=== PATIENT | female | born 1980 | race Caucasian/White ===

== ENCOUNTER 2018-03-11 22:51 | Emergency (ER) | payer MEDICAID, SELFPAY ==
[2018-03-11 22:56] VITALS: BP 129/95; PULSE 74; RESP 15; TEMP 36.6; O2SAT 96
--- NOTE | 2018-03-11 23:09 | W.ED.GENAD ---
Discharge Plan Disposition Patient Disposition: HOME Condition: Good Discharge Details Chief Complaint: RashLesion Clinical Impression: Natalie infection Primary Care Provider: Brad Chavez ED Provider: Jn Perez [place] Meds and New Rx's Prescriptions: New nystatin 100,000 unit/gram cream 1 applic TP BID Qty: 15 RF: 0 Discharge Instructions Instructions: Skin Yeast Infection (ED) Additional Instructions: Follow up with PCP or [facility] if rash does not clear up using the cream. Return to ED for fever, worsening pain/redness. Referrals: [facility] [place] [Provider Group] Medical Decision Making MDM Narrative Medical decision making narrative: Patient with what appears to be candidal rash underneath her left breast. Fingerstick glucose is fine, in the 90s. We will start her on nystatin cream. [facility] if not better in the next week or so. Return if worse. HPI - General Adult General Mode of arrival: ambulatory. Date/Time Provider Initiated Documentation: 03/11/18 23:03. Limitations to Documentation: no limitations. Information obtained by: patient. HPI Narrative: Patient here with rash under her breasts. She has had this intermittently for a couple of months. Currently has rash under her left breast not so much the right. It is pruritic in nature. She states that it smells bad and drains at times. She has had it previously in the groin but not now. She denies any medical problems. She denies fevers or chills. She denies rash elsewhere. Related Data Previous Rx's Medication Instructions Recorded nystatin 1 applic TP BID #15 gm 03/11/18 Allergies Allergy/AdvReac Type Severity Reaction Status Date / Time No Known Allergies Allergy Unverified 03/11/18 23:01 General Stated Complaint: RashLesion ERMIAS: 5 Review of Systems Constitutional Denies fever(s) Integumentary/Breasts Denies breast pain, Reports pruritus, Reports rash and Denies sores [facility] Family History Mother Diabetes Father Diabetes Grandmother Breast cancer Maternal Aunt Breast cancer Social History Smoking/Tobacco Use Status: Former Tobacco Use Surgical History Cervical Procedure (11/09/11) Cholecystectomy (~1993) Exam Const General: cooperative, comfortable and no acute distress Orientation: alert and oriented x3 HENMT Head: normocephalic and atraumatic Skin Rashes: rashes noted (Maculopapular, erythematous rash underneath the left breast with satellite lesions consistent with yeast. Rash visualized with female nurse present.) Course Vital Signs Temperature 97.9 F 03/11/18 22:56 Pulse 74 03/11/18 22:56 Respiratory Rate 15 03/11/18 22:56 Blood Pressure 129/95 H 03/11/18 22:56 Pulse Oximetry 96 03/11/18 22:56 Temperature 97.9 F 03/11/18 22:56 Pulse 74 03/11/18 22:56 Respiratory Rate 15 03/11/18 22:56 Blood Pressure 129/95 H 03/11/18 22:56 Pulse Oximetry 96 03/11/18 22:56
--- NOTE | 2018-03-11 23:20 | ED.GENADUL_ITS ---
Discharge Plan Disposition Patient Disposition: HOME Condition: Good Discharge Details Chief Complaint: RashLesion Clinical Impression: Natalie infection Primary Care Provider: Brad Chavez ED Provider: Jn Perez [place] Meds and New Rx's Prescriptions: New nystatin 100,000 unit/gram cream 1 applic TP BID Qty: 15 RF: 0 Discharge Instructions Instructions: Skin Yeast Infection (ED) Additional Instructions: Follow up with PCP or [facility] if rash does not clear up using the cream. Return to ED for fever, worsening pain/redness. [place] [facility] [place] Medical Decision Making MDM Narrative Medical decision making narrative: Patient with what appears to be candidal rash underneath her left breast. Fingerstick glucose is fine, in the 90s. We will start her on nystatin cream. [facility] if not better in the next week or so. Return if worse. HPI - General Adult General Mode of arrival: ambulatory . Date/Time Provider Initiated Documentation: 03/11/18 23:03 . Limitations to Documentation: no limitations . Information obtained by: patient . HPI Narrative: Patient here with rash under her breasts. She has had this intermittently for a couple of months. Currently has rash under her left breast not so much the right. It is pruritic in nature. She states that it smells bad and drains at times. She has had it previously in the groin but not now. She denies any medical problems. She denies fevers or chills. She denies rash elsewhere. Related Data Previous Rx's Medication Instructions Recorded nystatin 1 applic TP BID #15 gm 03/11/18 Allergies Allergy/AdvReac Type Severity Reaction Status Date / Time No Known Allergies Allergy Unverified 03/11/18 23:01 General Stated Complaint: RashLesion ERMIAS: 5 Review of Systems Constitutional Denies fever(s) Integumentary/Breasts Denies breast pain, Reports pruritus, Reports rash and Denies sores [facility] Family History Mother Diabetes Father Diabetes Grandmother Breast cancer Maternal Aunt Breast cancer Social History Smoking/Tobacco Use Status: Former Tobacco Use Surgical History Cervical Procedure (11/09/11) Cholecystectomy (~1993) Exam Const General: cooperative, comfortable and no acute distress Orientation: alert and oriented x3 HENMT Head: normocephalic and atraumatic Skin Rashes: rashes noted (Maculopapular, erythematous rash underneath the left breast with satellite lesions consistent with yeast. Rash visualized with female nurse present.) Course Vital Signs Temperature 97.9 F 03/11/18 22:56 Pulse 74 03/11/18 22:56 Respiratory Rate 15 03/11/18 22:56 Blood Pressure 129/95 H 03/11/18 22:56 Pulse Oximetry 96 03/11/18 22:56 Temperature 97.9 F 03/11/18 22:56 Pulse 74 03/11/18 22:56 Respiratory Rate 15 03/11/18 22:56 Blood Pressure 129/95 H 03/11/18 22:56 Pulse Oximetry 96 03/11/18 22:56
[2018-03-11 23:32] VITALS: BP 129/95; PULSE 74; RESP 15; TEMP 36.6; O2SAT 96
== END 2018-03-11 23:29 | disposition home or self-care (01) ==
PROVIDERS: Emergency Provider Emergency Medicine; PCP Internal Medicine
DX: B37.2 Candidiasis of skin and nail (principal)
CPT/HCPCS: 36416; 82962; 99283

== ENCOUNTER 2018-03-15 12:46 | Emergency (ER) | payer MEDICAID, SELFPAY ==
[2018-03-15 12:51] VITALS: BP 188/90; PULSE 79; RESP 16; TEMP 36.9; O2SAT 96
--- NOTE | 2018-03-15 13:19 | ED.GENADUL_ITS ---
Discharge Plan Disposition Patient Disposition: HOME Condition: Fair Discharge Details Chief Complaint: Orthopedic Clinical Impression: Pain of right scapula Primary Care Provider: Brad Chavez ED Provider: Kamila Blevins Home Meds and New Rx's Prescriptions: New ibuprofen 600 mg tablet 600 mg PO QID PRN (Reason: pain) Qty: 20 RF: 0 Continue nystatin 100,000 unit/gram cream 1 applic TP BID Qty: 15 RF: 0 Discharge Instructions Instructions: Musculoskeletal Pain (ED) Additional Instructions: Encourage hydration. Tylenol and/or ibuprofen as needed for discomfort. May take 2000 mg of Tylenol every 6 hours, 600 mg of ibuprofen every 6 hours as needed for pain. Encourage gentle stretching and range of motion. He may try topical patches Salonpas or Lidoderm patches. If you develop fevers/chills, difficulty breathing, or other new/worsening symptoms please seek care urgently once again. Otherwise please follow up with primary care in 1-2 weeks if pain persists. Referrals: Brad Chavez MD [Primary Care Provider] - ([phone]) Discharge Data Discharge Date/Time-TO BE ENTERED AT DEPARTURE: 03/15/18 13:37 Medical Decision Making [facility] Narrative Medical decision making narrative: Patient presents today with cc of right scapular pain that began again after fall a few days ago. No signs of trauma. Pain with palpation under the medial border of the scapula. Concern for subscapular bursitis vs. muscular pain. Discussed these diagnoesse and pathology with the patient. Endcouraged gentle range of motion. Will treat with tylenol, ibuprofen and lidoderm patch. Advised stretching techniques. Advised f /u with PCP in 1-2 weeks if symptoms persist. We discussed new/worsening symptoms and when to seek care urgently once again. She voices understanding and is in agreement with this plan. HPI - General Adult General Mode of arrival: ambulatory . Date/Time Provider Initiated Documentation: 03/15/18 13:04 . Limitations to Documentation: no limitations . Information obtained by: patient . HPI Narrative: Patient is a 37-year-old female presenting today with chief complaint of right medial scapular pain. She reports that she fell she slipped on a wet floor 3 days ago. States she did land on her outstretched right arm. Did not have any pain initially. However, pain began today upon awakening. States she was here a few months ago for similar pain. I did review the notes and patient indicates that this is the same area and type of pain that she was seen for previously. When she was seen 4 months ago for this she was given IM Toradol which she states is not successful in alleviating her discomfort. She has not tried anything as of yet for pain. She denies any altered sensation in her hand. States the pain is worse with movement of the shoulder. Denies any shortness of breath, difficulty breathing or chest pain. Patient has IUD Related Data Previous Rx's Medication Instructions Recorded nystatin 1 applic TP BID #15 gm 03/11/18 ibuprofen 600 mg PO QID PRN #20 tab 03/15/18 Allergies Allergy/AdvReac Type Severity Reaction Status Date / Time No Known Allergies Allergy Unverified 03/15/18 12:55 General Stated Complaint: Orthopedic ERMIAS: 4 Review of Systems Constitutional Reports as per HPI, Denies chills, Denies fever(s), Denies headache(s) and Denies malaise ENT Denies headache(s) Cardiovascular Denies chest pain, Denies chest pain at rest, Denies chest pain with activity, Denies dyspnea and Denies dyspnea on exertion Respiratory Denies cough, Denies dyspnea, Denies dyspnea on exertion and Denies wheezing Gastrointestinal Denies nausea and Denies vomiting Musculoskeletal Reports as per HPI Integumentary/Breasts Denies erythema, Denies rash, Denies skin pain and Denies wounds Neurologic Denies headache(s) Allergic/Immunologic Denies wheezing PFSH Family History Mother Diabetes Father Diabetes Grandmother Breast cancer Maternal Aunt Breast cancer Social History Smoking/Tobacco Use Status: Former Tobacco Use Surgical History Cervical Procedure (11/09/11) Cholecystectomy (~1993) Exam Const General: cooperative, healthy appearing, comfortable, no acute distress, well developed and well groomed Nutritional Appearance: overweight Orientation: alert and awake Neck Neck: normal visual inspection, full ROM, no meningeal signs, trachea midline and nontender Chest Chest: normal inspection of the chest, no localized rib tenderness and no tenderness Resp Effort & Inspection: normal respiratory effort, able to speak in complete sentences and no respiratory distress Auscultation: clear to auscultation bilaterally, lung sounds not diminished, no rales, no rhonchi and no wheezes Cardio Rate: regular rate Rhythm: regular rhythm Heart Sounds: S1 normal and S2 normal Back/Spine/Pelvis Back: no CVA tenderness Cervical Spine: normal cervical lordosis, cervical ROM normal and No cervical spinal tenderness Thoracic/Lumbar Spine: thoracic and lumbar spine normal to inspection Other: Patient has pain with palpation along the medial border of the right scapula. Pain is maximal with pressure under the scapular border. No erythema , warmth, swelling noted. No pain over the scapula, no pain medial to this border. 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 Forward elevation does increase discomfort along medial border of the scapula. ), full ROM and normal capillary refill Psych Appearance: grossly normal and well kempt Mental Status: mental status grossly normal Speech and Movement: speech and movement normal Course Vital Signs Temperature 36.9 C 03/15/18 12:51 Pulse 79 03/15/18 12:51 Respiratory Rate 16 03/15/18 12:51 Blood Pressure 188/90 H 03/15/18 12:51 Pulse Oximetry 96 03/15/18 12:51 Temperature 36.9 C 03/15/18 12:51 Pulse 79 03/15/18 12:51 Respiratory Rate 16 03/15/18 12:51 Blood Pressure 188/90 H 03/15/18 12:51 Pulse Oximetry 96 03/15/18 12:51
[2018-03-15] MEDS: Acetaminophen 500 MG TAB 1000 MG PO (13:26)
[2018-03-15] MEDS: Lidocaine 5% Patch 1 PATCH TP (13:27)
[2018-03-15] MEDS: Ibuprofen 600 MG TAB PO ×2 (13:27)
== END 2018-03-15 13:37 | disposition home or self-care (01) ==
PROVIDERS: Emergency Provider Physician Assistant; PCP Internal Medicine
DX: M25.511 Pain in right shoulder (principal)
CPT/HCPCS: 99283

== ENCOUNTER 2018-07-25 14:02 | Outpatient (REF) | payer MEDICAID, SELFPAY ==
[2018-07-25 15:48] LABS: HCT 41.8 % (36.0-46.0); HGB 13.8 g/dL (12.0-15.5); Mean Corpuscular Hemoglobin 29.9 pg (27.0-33.0); Mean Corpuscular Volume 90.7 fL (80-95); Platelet Count 255 x1000/uL (130-400); RBC 4.61 m/cumm (4.00-5.20); RBC Distribution Width 12.9 % (11.7-14.6); White Blood Cell Count 7.69 k/cumm (4.4-10.8)
[2018-07-25 16:50] LABS: Anion Gap 10.2 mmol/L (3-11); BUN 12 mg/dL (7-18); CO2 26.8 mmol/L (21.0-32.0); CREATININE 0.77 mg/dL (0.55-1.02); Calcium 8.9 mg/dL (8.5-10.1); Chloride 106 mmol/L (98-107); Glucose 87 mg/dL (70-100); Magnesium 1.7 mg/dL (1.8-2.4); NT-proBNP 73 pg/mL; Potassium 4.1 mmol/L (3.5-5.1); Sodium 143 mmol/L (136-145); TSH (W/Ref FT4) 2.41 uIU/mL (0.358-3.74)
== END 2018-07-25 14:22 ==
LOC: NCHCN 14:02
PROVIDERS: PCP Internal Medicine; Visit Provider Internal Medicine
DX: R07.89 Other chest pain (principal); R00.2 Palpitations
CPT/HCPCS: 80048; 85027; 83735; 83880; 84443

== ENCOUNTER 2018-08-03 07:57 | Outpatient (CLI) | payer MEDICAID, SELFPAY | END 2018-08-03 08:17 | PROVIDERS: PCP Internal Medicine; Visit Provider Internal Medicine | DX: R00.2 Palpitations (principal); I49.3 Ventricular premature depolarization; I49.1 Atrial premature depolarization | CPT/HCPCS: 93225 ==

== ENCOUNTER 2018-08-07 13:10 | Outpatient (CLI) | payer MEDICAID, SELFPAY ==
--- NOTE | 2018-08-07 15:47 | HOLTER_ITS ---
Date of dictation: August 07, 2018 Study Indication: Palpitations. Requesting Provider: Brad Chavez M.D. Findings: The patient was monitored for 2 days. The baseline rhythm was sinus rhythm. Average heart rate 85 bpm, range 65-155 bpm. There was rare ectopy, 6 PVCs, and 3 PACs. There was no ventricular tachycardia or supraventricular tachycardia. There were no pauses greater than 3 seconds. There was no high-degree heart block. There were 2 patient events; none of these events correlated with arrhythmias. Final Interpretation: Normal study.
== END 2018-08-07 13:30 ==
PROVIDERS: PCP Internal Medicine; Visit Provider Internal Medicine
DX: R00.2 Palpitations (principal); I49.3 Ventricular premature depolarization; I49.1 Atrial premature depolarization
CPT/HCPCS: 93226

== ENCOUNTER 2018-12-16 23:21 | Emergency (ER) | payer MEDICAID, SELFPAY ==
[2018-12-16 23:24] VITALS: BP 141/92; PULSE 90; RESP 18; TEMP 36.7; O2SAT 100
--- NOTE | 2018-12-16 23:27 | ED.GENADUL_ITS ---
Discharge Plan Disposition Patient Disposition: HOME Condition: Good Discharge Details Chief Complaint: EyeProblem Clinical Impression: Sensation of foreign body in eye Primary Care Provider: Brad Chavez ED Provider: Jn Perez Home Meds and New Rx's Prescriptions: Continued montelukast [Singulair] 10 mg Tablet 10 mg PO QPM RF: 0 fluticasone propionate [Flonase Allergy Relief] 50 mcg/actuation Dixon,Suspension 2 spray INTRANASAL DAILY RF: 0 Zyrtec 10 mg Capsule 10 mg PO DAILY PRNRF: 0 Discharge Instructions Additional Instructions: There was no obvious foreign body in the eye. There is no corneal abrasion. May try [id number] eyedrops like Visine to see if it helps. Do not use more than a day. If your eye is still bothering you follow-up with your eye doctor Tuesday or Tuesday. If you have increasing pain, decreasing vision, puslike drainage from the eye return to ED. Discharge Data Discharge Date/Time-TO BE ENTERED AT DEPARTURE: 12/16/18 23:49 Medical Decision Making Patient presenting with foreign body sensation to the left eye. Tetracaine was used to anesthetize the eye with complete relief of symptoms. There is no obvious foreign body seen. Upper lid was everted and swiped with mucous material but no obvious foreign body removed. Fluorescein staining done. No uptake under Wang lamp. Slit lamp exam performed with no evidence of foreign body seen. Cornea is clear. Anterior chamber is clear. Patient reports that sensation was up under the upper eyelid so hopefully the eversion of the lid and swiping away material removes any potential foreign body. She may try over-the- counter eyedrops like Visine for the next day. Follow-up with her eye doctor early next week if continued symptoms. Return to ED for change in vision, eye pain, eye swelling, drainage, erythema. HPI General Mode of arrival: ambulatory . Date/Time Provider Initiated Documentation: 12/16/18 23:24 . Limitations to Documentation: no limitations . Information obtained by: patient, RN notes reviewed and old records reviewed . HPI Narrative: Patient presents to ED with about 2-1/2 hours of foreign body sensation to the left eye. She does not recall anything specifically going into her eye. However she has been tearing and rubbing at it for 2 hours. The sensation periodically goes away and comes back. She has no change in vision. She has no purulent discharge. She does not wear contacts. Related Data Home Medications Medication Instructions Recorded Confirmed Zyrtec 10 mg PO DAILY PRN 12/16/18 12/16/18 fluticasone propionate [Flonase 2 spray INTRANASAL DAILY 12/16/18 12/16/18 Allergy Relief] montelukast [Singulair] 10 mg PO QPM 12/16/18 12/16/18 Allergies Allergy/AdvReac Type Severity Reaction Status Date / Time No Known Allergies Allergy Unverified 12/16/18 23:29 General ERMIAS: 4 Review of Systems Constitutional Denies fever(s) and Denies headache(s) Eyes Denies change in vision, Reports eye discharge (clear tearing), Reports irritation, Reports itchy eyes, Denies loss of vision and Denies eye pain Comments: foreign body sensation ENT Denies headache(s) Gastrointestinal Denies nausea and Denies vomiting Neurologic Denies headache(s) and Denies loss of vision Allergic/Immunologic Reports itchy eyes PFS Surgical History Cervical Procedure (11/09/11) Cholecystectomy (~1993) Family History Mother Diabetes Father Diabetes Grandmother Breast cancer Maternal Aunt Breast cancer Social History Smoking/Tobacco Use Status: Former Tobacco Use Alcohol Intake: never Drug use: Never Do you feel safe at home: Yes Do you feel safe in your relationship?: Yes Exam Const General: cooperative and no acute distress Orientation: alert and oriented x3 HENMT Head: normocephalic and atraumatic Face and sinus: normal facial exam Eyes Periorbital: periorbital findings normal Eyelids: eyelid abnormality left upper eyelid swelling; without erythema and nontender Conjunctivae: conjunctival abnormality left conjunctival injection Sclera: sclerae normal Cornea: corneas normal and fluorescein used Pupils: PERRL EOM: EOM intact bilaterally Other: VA is 20/25 in left and 20/20 right.
[2018-12-16] MEDS: Fluorescein STRIPS 100/BOX 1 MG (23:37)
[2018-12-16] MEDS: Tetracaine 0.5% 4 ML BTL (23:37)
== END 2018-12-16 23:49 | disposition home or self-care (01) ==
PROVIDERS: Emergency Provider Emergency Medicine; PCP Internal Medicine
DX: T15.92XA Foreign body on external eye, part unspecified, left eye, initial encounter (principal)
CPT/HCPCS: 99283

== ENCOUNTER 2019-02-23 10:19 | Outpatient (REF) | payer MEDICAID, SELFPAY ==
[2019-02-26 13:58] LABS: Chlamydia Result Negative; GC Result Negative; Specimen Description CERVIX
== END 2019-02-23 10:39 ==
LOC: LBN 10:19
PROVIDERS: PCP Internal Medicine; Visit Provider Nurse Practitioner Women's Health
DX: Z11.3 Encounter for screening for infections with a predominantly sexual mode of transmission (principal)
CPT/HCPCS: 87491; 87591

== ENCOUNTER 2019-02-28 00:33 | Outpatient (CLI) | payer MEDICAID, SELFPAY ==
--- NOTE | 2019-02-28 08:39 | DI.COMBO_ITS ---
SYMPTOMS/DIAGNOSIS: SHARP RT BREAST PAIN, FIBROCYSTIC TISSUE, N64.4, MASTODYNIA, N63.10, PAINFUL LUMPY RT BREAST MAMMOGRAM AND RIGHT BREAST ULTRASOUND: Mammograms were interpreted according to the usual protocol including computer analysis with CAD system, tomosynthesis and C view imaging. The patient notes tenderness in the lower inner quadrant of the right breast. This is a baseline examination. The breasts are composed of scattered fibroglandular densities, breast density Category B. No masses or suspicious calcifications are seen. No abnormality is seen in the area of patient tenderness. Right breast ultrasound shows no evidence of a cyst or mass. IMPRESSION: Category I, negative mammogram. Annual screening is recommended at age 40 or sooner if clinically indicated. [facility] ASSESSMENT OF FINDINGS: Negative. Category 1. Patient will receive a letter notifying them of these results. BI-RADS category B. There are scattered areas of fibroglandular density.
== END 2019-02-28 00:53 ==
PROVIDERS: PCP Internal Medicine; Visit Provider Nurse Practitioner Women's Health
DX: N63.14 Unspecified lump in the right breast, lower inner quadrant (principal); N64.4 Mastodynia
CPT/HCPCS: 76642; 77062; 77066; G0279

== ENCOUNTER 2019-07-11 06:53 | Outpatient (CLI) | payer MEDICAID, SELFPAY ==
--- NOTE | 2019-07-11 07:58 | DI.US_ITS ---
EXAM: US PELVIS TRANSVAGINAL CLINICAL HISTORY: PELVIC PAIN LT, R10.2. TECHNIQUE: Ultrasound of the pelvic, both abdominal and transvaginal was performed using standard pr otocol. COMPARISON: No previous for comparison. FINDINGS: KIDNEYS: Kidneys are symmetric in size. No evidence of renal calculi. No evidence of hydronephrosis. No renal mass or cyst identified. UTERUS: Position: Anteverted. Size: 9.1 x 5.1 x 5.6 cm Endometrium: 0.3 cm. Normal for patient's menstrual status. There is an IUD in good position. Myometrium: Unremarkable. Cervix: Unremarkable. OVARIES: Right: 2.3 x 1.2 x 2.2 cm Cyst or mass: None. Left: 2.4 x 1.8 x 2.9 cm Cyst or mass: There is a 1.8 x 1.4 x 2.1 centimeter dominant follicle. DOPPLER: Color: Symmetric and uniform flow to both ovaries. No hyperemia. Duplex: Normal ovarian arterial waveforms visualized. CUL-DE-SAC: Free fluid: None. IMPRESSION: 1. Normal sonographic appearance of the kidneys. 2. Normal-appearing uterus with endometrial stripe within normal limits. IUD in good position. 3. Unremarkable bilateral ovaries.
== END 2019-07-11 07:13 ==
PROVIDERS: PCP Internal Medicine; Visit Provider Specialist/Technologist Athletic Trainer
DX: R10.2 Pelvic and perineal pain (principal); Z97.5 Presence of (intrauterine) contraceptive device
CPT/HCPCS: 76830; 76856

== ENCOUNTER 2019-09-14 16:07 | Emergency (ER) | payer MEDICAID, SELFPAY ==
[2019-09-14 16:08] VITALS: BP 158/91; PULSE 86; RESP 16; TEMP 37.1; O2SAT 97
--- NOTE | 2019-09-14 16:24 | ED.GENADUL_ITS ---
Discharge Plan Disposition Patient Disposition: HOME Discharge Details Chief Complaint: Orthopedic Clinical Impression: AC (acromioclavicular) joint arthritis Primary Care Provider: Brad Chavez ED Provider: Abran Chen Home Meds and New Rx's Prescriptions: Continued Zyrtec 10 mg Capsule 10 mg PO DAILY PRNRF: 0 montelukast [Singulair] 10 mg tablet 10 mg PO QPM PRNRF: 0 fluticasone propionate [Flonase Allergy Relief] 50 mcg/actuation spray,suspension 2 spray INTRANASAL DAILY PRNRF: 0 Discharge Instructions Instructions: Arthritis (ED) Additional Instructions: Please take ibuprofen over the counter. Take 600mg by mouth every 6 hours as needed for pain. Use sling for comfort over the next couple weeks. Limit activities that worsen pain. Please contact your primary care physician to arrange follow-up. Return to the ER for any worsening or new concerning symptoms. Referrals: Brad Chavez MD [Primary Care Provider] - Medical Decision Making 38-year-old female presenting with right shoulder pain is worse with certain positions and on palpation. Patient tender to palpation over the right AC joint. Suspect arthritis of the AC joint. Plan to treat with sling and ibuprofen. Usual and customary discharge instructions provided. HPI General Mode of arrival: ambulatory . Date/Time Provider Initiated Documentation: 09/14/19 16:15 . Limitations to Documentation: no limitations . Information obtained by: patient . HPI Narrative: 38-year-old female presents with chief complaint of left shoulder pain. Patient notes she woke up with the pain yesterday. Pain is worse with certain positions including internal rotation of her shoulder and elevation. Pain worse on palpation anterior clavicle and shoulder. Patient denies trauma. No chest pain. No shortness of breath. Patient states she has Tourette's and has spasms of her shoulders. Related Data Home Medications Medication Instructions Recorded Confirmed Zyrtec 10 mg PO DAILY PRN 12/16/18 09/14/19 fluticasone propionate 50 2 spray INTRANASAL DAILY PRN 09/04/19 09/14/19 mcg/actuation nasal spray,suspension montelukast 10 mg tablet 10 mg PO QPM PRN 09/04/19 09/14/19 Allergies Allergy/AdvReac Type Severity Reaction Status Date / Time No Known Allergies Allergy Unverified 09/14/19 16:16 dust mites Allergy Uncoded 09/14/19 16:16 mold Allergy Uncoded 09/14/19 16:16 General Stated Complaint: Orthopedic ERMIAS: 4 Review of Systems All systems reviewed & are unremarkable except as noted in HPI and below Cardiovascular Cardiovascular: Denies chest pain and Denies dyspnea Respiratory Respiratory: Denies dyspnea Musculoskeletal Musculoskeletal: Reports as per HPI [facility] Medical History (Updated 09/14/19 @ 16:30 by Abran Chen MD) Obesity (Chronic) Surgical History Cervical Procedure (11/09/11) AGNES II, positive ECC Cholecystectomy (~1993) [place] Social History Smoking/Tobacco Use Status: Former Tobacco Use Alcohol Intake: never Drug use: Never Do you feel safe at home: Yes Do you feel safe in your relationship?: Yes Female Reproductive History Menstrual control method: progestin IUCD History History 7 Para 4 Hx # Term Pregnancies Multiple births Hx # Pregnancies Ectopic pregnancies AB induced Hx Number of Living Children AB spontaneous Exam Const General: cooperative and no acute distress HENMT Mouth: moist mucous membranes Eyes Conjunctivae: normal conjunctivae Sclera: normal sclerae Neck Neck: trachea midline and supple Resp Auscultation: clear to auscultation bilaterally, no rales, no rhonchi and no wheezes Cardio Jugular venous pressure: no JVD Rate: regular rate and not tachycardic Rhythm: regular rhythm Skin General skin exam: no rashes or lesions noted Extrem General: no edema Right upper extremity: shoulder/upper arm (Tenderness on palpation of AC) Details: normal ROM; no swelling, no deformity and no unusual warmth; no edema Course Vital Signs Vital signs: Vital Signs Temperature 37.1 C 09/14/19 16:08 Pulse 86 09/14/19 16:08 Respiratory Rate 16 09/14/19 16:08 Blood Pressure 158/91 H 09/14/19 16:08 Pulse Oximetry 97 09/14/19 16:08 Temperature 37.1 C 09/14/19 16:08 Temperature Source Skin 09/14/19 16:08 Pulse 86 09/14/19 16:08 Respiratory Rate 16 09/14/19 16:08 Blood Pressure 158/91 H 09/14/19 16:08 Blood Pressure Position Sitting 09/14/19 16:08 Pulse Oximetry 97 09/14/19 16:08 Oxygen Delivery Method Room Air 09/14/19 16:08 Oxygen Flow Rate 0 09/14/19 16:08 Pain Level 10 09/14/19 16:08 Comment 09/14/19 16:08
[2019-09-14] MEDS: Ibuprofen 600 MG TAB PO (16:28)
== END 2019-09-14 16:41 | disposition home or self-care (01) ==
PROVIDERS: Emergency Provider Student in an Organized Health Care Education/Training Program; PCP Internal Medicine
DX: M19.012 Primary osteoarthritis, left shoulder (principal)
CPT/HCPCS: 99283; 99282; L3650

== ENCOUNTER 2020-01-01 10:19 | Outpatient (CLI) | payer MEDICAID, SELFPAY ==
[2020-01-01 14:44] LABS: HCG Quant, Pregnancy 4535 mIU/mL (1-3)
== END 2020-01-01 10:39 ==
PROVIDERS: PCP Internal Medicine; Visit Provider Obstetrics & Gynecology Gynecology
DX: O20.0 Threatened abortion (principal)
CPT/HCPCS: 36415; 84702

== ENCOUNTER 2020-01-04 03:25 | Outpatient (CLI) | payer MEDICAID, SELFPAY ==
[2020-01-04 13:50] LABS: HCT 41.3 % (36.0-46.0); HGB 13.6 g/dL (12.0-15.5); Mean Corp. HGB Concentration 32.9 g/dL (32.0-36.0); Mean Corpuscular Hemoglobin 29.5 pg (27.0-33.0); Mean Corpuscular Volume 89.6 fL (80-95); Mean Platelet Volume 9.7 fL (8.0-11.0); Platelet Count 312 x1000/uL (130-400); RBC 4.61 m/cumm (4.00-5.20); RBC Distribution Width 12.7 % (11.7-14.6); White Blood Cell Count 8.31 k/cumm (4.4-10.8)
== END 2020-01-04 03:45 ==
PROVIDERS: PCP Internal Medicine; Visit Provider Obstetrics & Gynecology Gynecology
DX: O02.1 Missed abortion (principal); Z01.818 Encounter for other preprocedural examination; Z01.812 Encounter for preprocedural laboratory examination
CPT/HCPCS: 36415; 85027; 86850; 86900; 86901

== ENCOUNTER 2020-01-04 08:26 | Outpatient (CLI) | payer MEDICAID, SELFPAY ==
[2020-01-06 17:55] LABS: COVID-19 RT-PCR Result NEGATIVE (Negative)
== END 2020-01-04 08:46 ==
PROVIDERS: PCP Internal Medicine; Visit Provider Obstetrics & Gynecology Gynecology
DX: Z11.59 Encounter for screening for other viral diseases (principal); Z01.818 Encounter for other preprocedural examination
CPT/HCPCS: U0003

== ENCOUNTER 2020-01-07 06:09 | Day surgery (SDC) | payer MEDICAID, SELFPAY ==
[2020-01-07 06:15] VITALS: BP 123/75; PULSE 70; RESP 18; TEMP 36.7; O2SAT 97
[2020-01-07] MEDS: Lactated Ringers 1,000 ML 125 ML IV (07:39)
--- NOTE | 2020-01-07 08:00 | POCSPONT_PTH ---
PATIENT: Vicky Urbina LOC: [facility] U#:[id number] AGE/SX: 39/F ROOM: RE01/07/[address]: Fatuma Uriostegui : 1980 BED: DIS: 01/07/2020 SPEC #: [id number] RECD: 01/07/20 12:24 STATUS: NAYELI MAYS #: [id number] NACHO: 01/07/20 08:[address]: Fatuma Uriostegui DEPT: Surgical Specimen RECD BY: Chelle Peralta ENTERED: 01/07/20 12:25 SP TYPE: POCSPONT TANJA DR: Brad Chavez Tissues: 1 - ,SPONTANEOUS Procedures: GROSS AND MICRO LEVEL 4 Comments: [id number]
[2020-01-07] MEDS: Bupivacaine 0.25% Pres-Free 30 ML VIAL (08:01)
[2020-01-07] MEDS: Silver Nitrate Stick 1 EACH (08:03)
--- NOTE | 2020-01-07 08:09 | PDOC.DSDIS_ITS ---
Discharge Plan Disposition Patient Disposition: HOME Condition: Fair Discharge Details Attending Provider: Fatuma Uriostegui Primary Care Provider: Brad Chavez Home Meds and New Rx's Prescriptions: No Action prenat.vits,adarsh,rvh-lutn-lixtp Tablet 1 tab PO DAILY RF: 0 doxycycline hyclate 100 mg tablet 100 mg PO DAILY Qty: 2 RF: 0 Zyrtec 10 mg Capsule 10 mg PO DAILY PRNRF: 0 montelukast [Singulair] 10 mg tablet 10 mg PO QPM PRNRF: 0 fluticasone propionate [Flonase Allergy Relief] 50 mcg/actuation spr ay,suspension 2 spray INTRANASAL DAILY PRNRF: 0 Discharge Instructions Additional Instructions: Follow-up with Dr. Uriostegui in approximately 1 week. Stand Alone Forms: DSU Post Gynecology Surgery Activity:: Activity as Tolerated Diet:: As Tolerated Discharge Orders Discharge Orders: Discharge Order (Routine); Ordered 01/07/20 Ordered By: Fatuma Uriostegui DS: Diagnosis Discharge Diagnosis (1) Missed : Status: Acute (2) History of D&C: Status: Acute
--- NOTE | 2020-01-07 08:12 | W.PM.OP ---
Date of service: 01/07/20 Time of Service: 08:12 Operative Note Operative Note DATE OF PROCEDURE: 01/07/20 PRE-OP DIAGNOSIS: Missed AB at 11 weeks EGA POST-OP DIAGNOSIS: same PROCEDURE: Cervical dilatation and suction evacuation of uterine contents SURGEON: Fatuma Uriostegui ANESTHESIA: GETA ESTIMATED BLOOD LOSS: 5 PATHOLOGY: other (Uterine contents to pathology) COMPLICATIONS: None Patient's condition: stable Indications: 39-year-old G8, P4 female 11 weeks EGA by LMP and positive test. Initial transvaginal OB ultrasound at 9 weeks showed empty gestational sac. Follow-up ultrasound approximately 2 weeks later showed the same sac measuring approximately 6 weeks EGA with no evidence of pole. Quantitative hCG 4000mIU/ml. Patient was counseled regarding surgical options versus expectant management. She requested surgical management. Findings: Uterus sounded to 8 weeks small amount of products of conception obtained. Procedure Description: Patient was taken the operating room she placed in the dorsal supine position and laryngeal mask anesthesia was administered without difficulty. She was then placed in the dorsal lithotomy position in yellowfin stirrups prepped and draped in the usual sterile fashion. Surgical timeout was performed she had SCDs in place. An in and out catheterization of the urinary bladder was performed for 50 cc of clear naseem urine. [place] speculum was placed in the vagina and the anterior lip of the cervix was infiltrated with 1 cc of quarter percent Marcaine without epinephrine. The anterior lip of the cervix was then grasped with a single-tooth tenaculum and a paracervical block was performed with quarter percent Marcaine. The uterus was sounded with the above-noted findings. The cervix was dilated to a maximum of 19 De and a 7 mm curved suction cannula was introduced into the uterine cavity attached to suction and all 4 quadrants of the uterine cavity were sequentially suction curetted with successful return of the products of conception. The suction cannula was removed uterine cavity was banjo curetted with minimal tissue returned. All instruments were removed from the vagina the tenaculum site was treated with silver nitrate and was hemostatic at the completion of the procedure. All sponge lap needle counts are correct x2. She was awakened extubated and transported recovery area in stable condition
[2020-01-07 08:15] VITALS: BP 98/60; PULSE 81; RESP 16; TEMP 36.1; O2SAT 96
[2020-01-07] MEDS: DOXYCYCLINE 100 MG in Normal Saline 100 ML IVPB (08:15)
[2020-01-07 08:20] VITALS: BP 100/69; PULSE 88; RESP 15; TEMP 36.1; O2SAT 98
[2020-01-07 08:25] VITALS: BP 117/82; PULSE 88; RESP 10; TEMP 36.1; O2SAT 95
[2020-01-07 08:40] VITALS: BP 118/77; PULSE 80; RESP 10; TEMP 36.4; O2SAT 95
[2020-01-07 09:22] VITALS: BP 106/70; PULSE 82; RESP 17; TEMP 36.5; O2SAT 96
== END 2020-01-07 10:28 | disposition home or self-care (01) ==
PROVIDERS: PCP Internal Medicine; Visit Provider Obstetrics & Gynecology Gynecology
PROC: (CPT 59820; principal; 2020-01-07 07:30)
DX: O02.1 Missed abortion (principal)
CPT/HCPCS: 59820; 88305; J1100; J1885; J2001; J2405

== ENCOUNTER 2020-01-15 03:16 | Outpatient (CLI) | payer MEDICAID, SELFPAY ==
[2020-01-15 09:39] LABS: HCG Quant, Pregnancy 19 mIU/mL (1-3)
== END 2020-01-15 03:36 ==
PROVIDERS: PCP Internal Medicine; Visit Provider Obstetrics & Gynecology Gynecology
DX: Z98.890 Other specified postprocedural states (principal)
CPT/HCPCS: 36415; 84702

== ENCOUNTER 2020-06-23 10:40 | Emergency (ER) | payer MEDICAID, SELFPAY ==
[2020-06-23 10:50] VITALS: BP 146/96; PULSE 71; RESP 18; TEMP 36.6; O2SAT 97
--- NOTE | 2020-06-23 11:12 | DI.US_ITS ---
EXAM: US PELVIS CLINICAL HISTORY: left pelvic pain, please scan uterus, b/l adnexa TECHNIQUE: Ultrasound of the pelvis was performed transabdominally. Patient apparently did not want to undergo transvaginal study. COMPARISON: US US PELVIS TRANSVAGINAL from 07/11/2019 FINDINGS: UTERUS: Measures 9.2 cm length x 4.3 cm AP x 5.7 cm wide. There are no obvious uterine fibroids. Endometrial thickness measures 4 mm. Previously described IUD is not evident on these transabdominal images. There is no fluid in the endometrial canal. CERVIX: There are no obvious nabothian cysts. RIGHT OVARY: Measures 2.5 x 1.4 x 1.6 cm No significant cysts nor masses evident in the right ovary. LEFT OVARY: Measures 1.7 x 1.2 x 1.3 cm No significant cysts nor masses evident in the left ovary. CUL-DE-SAC: No free fluid evident. IMPRESSION: 1. Normal appearing uterus and age-appropriate endometrium. 2. No abnormal ovarian findings. 3. No free fluid evident in the adnexal regions and cul-de-sac. 4. The previously described IUD in the endometrial cavity is not evident on the present images which were transabdominal only. DATA REPOSITORY:
--- NOTE | 2020-06-23 11:27 | W.ED.GENAD ---
Discharge Plan Disposition Patient Disposition: HOME Condition: Stable Discharge Details Clinical Impression: Pelvic pain Primary Care Provider: Brad Chavez ED Provider: Sharon Chen Home Meds and New Rx's Prescriptions: Continued Zyrtec 10 mg Capsule 10 mg PO DAILY PRNRF: 0 montelukast [Singulair] 10 mg tablet 10 mg PO QPM PRNRF: 0 fluticasone propionate [Flonase Allergy Relief] 50 mcg/actuation spray,suspension 2 spray INTRANASAL DAILY PRNRF: 0 Discharge Instructions Instructions: Endometriosis (ED), Pelvic Pain in Women (ED) Additional Instructions: Please return immediately to the emergency department if you develop any new or worsening symptoms, if your condition does not improve as expected, or if you become otherwise concerned. It is extremely important that you call soon as possible to make an appointment to be seen in follow-up for this visit by your primary care doctor and [facility] as we discussed. Referrals: Fatuma Uriostegui MD [ [facility] STAFF PHYSICIAN] - Brad Chavez MD [Primary Care Provider] - Discharge Data Discharge Date/Time-TO BE ENTERED AT DEPARTURE: 06/23/20 13:37 Medical Decision Making Vicky Andrew is a 39 y/o woman presenting to the emergency department with chronic lower abdominal pain, worse on left for past several months, worsens on the first day of her period. On exam Pt is very well and non-toxic appearing. Mild TTP across lower abdomen, worse on left. Given chronicity, worsens with period, no change in symptoms since onset, concern for dysmenorrhea, endometriosis, other. Exam/hx not c/w UTI, ectopic , diverticulits, appendicitis, PID, ovarian torsion, other acute emergent intra-abdominal pathology. Plan for urine preg, UA, pelvic US. Pt refused transvaginal US. Transabdominal US non-diagnostic. UA neg. test neg per nursing. Pt was offered pelvic exam, Pt declines and states that she prefers to f/u outpt with [facility]. I had a lengthy discussion with Patient regarding return to emergency department precautions, home care, and importance of outpatient follow-up. Pt verbalizes understanding of the plan and is amenable. Patient discharged to home with clear plan for outpatient follow-up. All questions were answered. Disposition decision was made weighing the risks and benefits of hospitalization versus outpatient treatment, the risk for further decompensation, and the patient's wishes. Medical Records Medical records reviewed: Yes I reviewed the patient's medical records. Imaging Data Radiologic Study: Attestation: I personally reviewed and interpreted this imaging study as follows: Radiologist's impression: EXAM: US PELVIS CLINICAL HISTORY: left pelvic pain, please scan uterus, b/l adnexa TECHNIQUE: Ultrasound of the pelvis was performed transabdominally. Patient apparently did not want to undergo transvaginal study. COMPARISON: US US PELVIS TRANSVAGINAL from 07/11/2019 FINDINGS: UTERUS: Measures 9.2 cm length x 4.3 cm AP x 5.7 cm wide. There are no obvious uterine fibroids. Endometrial thickness measures 4 mm. Previously described IUD is not evident on these transabdominal images. There is no fluid in the endometrial canal. CERVIX: There are no obvious nabothian cysts. RIGHT OVARY: Measures 2.5 x 1.4 x 1.6 cm No significant cysts nor masses evident in the right ovary. LEFT OVARY: Measures 1.7 x 1.2 x 1.3 cm No significant cysts nor masses evident in the left ovary. CUL-DE-SAC: No free fluid evident. IMPRESSION: 1. Normal appearing uterus and age-appropriate endometrium. 2. No abnormal ovarian findings. 3. No free fluid evident in the adnexal regions and cul-de-sac. 4. The previously described IUD in the endometrial cavity is not evident on the present images which were transabdominal only. Lab Data Lab results reviewed: Yes I reviewed the patient's lab results. Labs: Laboratory Tests Range/Units 06/23/20 11:40 Urine Color (Yellow) Yellow Urine Clarity (Clear) Clear Urine pH (5-8) 6.0 Ur Specific [place] (1.005-1.025) 1.025 Urine Protein (Negative) mg/dL Negative Urine Ketones (Negative) mg/dL Negative Urine Blood (Negative) Trace-lysed H Urine Nitrite (Negative) Negative Urine Bilirubin (Negative) Negative Urine Urobilinogen (Up TO 0.2) EU/dL 0.2 Ur Leukocyte Esterase (Negative) Negative Urine RBC (0-2) HPF 0-2 Urine WBC (0-5) HPF Negative Ur Epithelial Cells (Negative) HPF Rare Urine Crystals (Negative) HPF Negative Urine Bacteria (Negative) HPF Rare Urine Casts (Negative) LPF Negative Urine Mucus (Negative) Negative Urine Other (Negative) Negative Ur Culture Indicated? No Urine Glucose (Negative) mg/dL Negative HPI General Mode of arrival: ambulatory. Date/Time Provider Initiated Documentation: 06/23/20 10:48. Limitations to Documentation: no limitations. Information obtained by: patient, RN notes reviewed and old records reviewed. HPI Narrative: Vicky Andrew is a 39-year-old woman without reported history of major medical problems presenting to the emergency department with left-sided pelvic pain. Patient reports that pain has been chronic and present since January 2020, approximately 1 month after undergoing D&C after spontaneous miscarriage. Patient reports that pain has been ongoing since that time, seems to worsen on day 1 or 2 of her period, improves somewhat after her period. Patient reports that pain does not resolve. Patient reports that last period started 06/20, pain worsened 06/21. Patient reports that pain is no worse than it has been chronically for her, but persistence of pain caused her to present to the emergency department today. She denies any other pain, fever, cough, shortness of breath, vomiting, diarrhea, constipation, dysuria, change in vaginal discharge. Patient reports that she is sexually active and monogamous with her , and she is trying to become . She denies any hormonal therapy/fertility treatment. Has been eating and drinking as usual. Related Data Home Medications Medication Instructions Recorded Confirmed Zyrtec 10 mg PO DAILY PRN 12/16/18 07/02/20 fluticasone propionate 50 2 spray INTRANASAL DAILY PRN 09/04/19 07/02/20 mcg/actuation nasal spray,suspension montelukast 10 mg tablet 10 mg PO QPM PRN 09/04/19 07/02/20 Allergies Allergy/AdvReac Type Severity Reaction Status Date / Time dust mites Allergy Uncoded 07/02/20 13:20 mold Allergy Uncoded 07/02/20 13:20 General Stated Complaint: Abd Prob ERMIAS: 3 Review of Systems Narrative: Constitutional: denies fevers Eyes: denies eye pain ENT: denies ear pain, dental pain, sore throat Cardiovascular: denies chest pain Respiratory: denies SOB, cough GI: denies vomiting, diarrhea, reports abdominal pain as per HPI : denies flank pain, dysuria, abnormal vaginal bleeding, vaginal discharge MSK: denies back pain, neck pain, arthralgias, myalgias Skin: denies rash Neuro: denies headaches, numbness, weakness PFSH Medical History (Updated 06/23/20 @ 13:28 by Sharon Chen MD) Missed Obesity Post-operative nausea and vomiting Surgical History (Updated 01/07/20 @ 08:10 by Fatuma Uriostegui MD) 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 History of surgery on arm Bilateral tendonitis, cyst removal, dislocation L elbow (metal removed) Family History Mother Diabetes Father Diabetes Grandmother Breast cancer maternal Maternal Aunt Breast cancer maternal - Social History Smoking/Tobacco Use Status: Former Tobacco Use Quit Date: 01/25/18 Smoking risk assessment performed?: Yes Alcohol Intake: never Drug use: Never Substance use type: does not use Household members: significant other and other Details: H-Amarjit. Her children are not in her custody Number of Children: 4 Current gender identity: female Do you feel safe at home: Yes Do you feel safe in your relationship?: Yes Additional Social history: 11/21/19 Currently her two oldest children are in custody of their father and the younger two were recently adopted out of the foster care system. Pt states I was hoping for this baby...I have had three abortions by choice. Female Reproductive History Menstrual control method: progestin IUCD History History 8 Para 4 Hx # Term Pregnancies 4 Multiple births Hx # Pregnancies Ectopic pregnancies AB induced 3 Hx Number of Living Children 4 AB spontaneous Exam Narrative Exam Narrative: Constitutional: well and szy-cpqzz-ywuhwfzjh, pleasant, conversing normally HENT: head atraumatic/normocephalic/normal inspection, mucous membranes moist Eyes: conjunctiva normal, sclera normal, pupils 3mm b/l Neck: no stridor, normal ROM, trachea midline Resp: normal work of breathing, LCTAB Cardio: normal rate, normal rhythm, no murmur appreciated GI: abdomen soft, midl TTP across lower abdomen worse on left, no rebound or guarding, non-distended Skin: warm, dry, normal color, no rash Neuro: alert, not altered, grossly non-focal, normal tone Ext: no edema Psych: normal mood, normal affect, normal behavior Course Vital Signs Vital signs: Vital Signs Temperature 36.6 C 06/23/20 10:50 Pulse 71 06/23/20 10:50 Respiratory Rate 18 06/23/20 10:50 Blood Pressure 146/96 H 06/23/20 10:50 Pulse Oximetry 97 06/23/20 10:50 Temperature 36.6 C 06/23/20 10:50 Temperature Source Skin 06/23/20 10:50 Pulse 71 06/23/20 10:50 Respiratory Rate 18 06/23/20 10:50 Respiratory Effort Non-Labored 06/23/20 10:58 Blood Pressure 146/96 H 06/23/20 10:50 Blood Pressure Position Sitting 06/23/20 10:50 Pulse Oximetry 97 06/23/20 10:50 Oxygen Delivery Method Room Air 06/23/20 10:50 Oxygen Flow Rate 0 06/23/20 10:50 Pain Level 8 06/23/20 10:50 Lab/Test Results Lab/Test Results: POC Urine Test Start: 06/23/20 10:57 Freq: Status: Complete Protocol: Document 06/23/20 10:58 CP (Rec: 06/23/20 10:58 CP [id number]) Test(Urine)-POC POC- Test(urine) Negative POC- Test(urine) Negative
[2020-06-23 11:49] LABS: Bilirubin Negative (Negative); Blood Trace-lysed (Negative); Clarity Clear (Clear); Glucose Negative (Negative); Ketones Negative (Negative); Leukocyte Esterase Negative (Negative); Nitrite Negative (Negative); Specific Gravity 1.025 (1.005-1.025); Urobilinogen 0.2 EU/dL (Up TO 0.2)
[2020-06-23 11:53] LABS: Bacteria Rare HPF (Negative); C & S Indicated? No; Casts Negative LPF (Negative); Crystals Negative HPF (Negative); Epithelial Cells Rare HPF (Negative); Mucus Negative (Negative); Other Cells Negative (Negative); RBC 0-2 HPF (0-2); WBC Negative HPF (0-5)
[2020-06-23 13:37] VITALS: BP 153/98; PULSE 83; TEMP 36.7; O2SAT 97
== END 2020-06-23 13:37 | disposition home or self-care (01) ==
PROVIDERS: Emergency Provider Student in an Organized Health Care Education/Training Program; PCP Internal Medicine
DX: R10.2 Pelvic and perineal pain (principal); G89.29 Other chronic pain
CPT/HCPCS: 81025; 99284; 76856; 81003; 81015; 99283

== ENCOUNTER 2020-07-02 15:39 | Outpatient (REF) | payer MEDICAID, SELFPAY ==
--- NOTE | 2020-07-02 14:20 | PAPFT_PTH ---
PATIENT: Vicky Urbina LOC: [place] U#:[id number] AGE/SX: 39/F ROOM: RE07/02/[address]: Fatuma Uriostegui : 1980 BED: DIS: 07/02/2020 SPEC #: [id number] RECD: 07/02/20 18:26 STATUS: NAYELI REGregg #: [id number] NACHO: 07/02/20 14:[address]: Fatuma Uriostegui DEPT: [facility] Cytology RECD BY: Chelle Peralta ENTERED: 07/02/20 18:26 SP TYPE: PAPFT OTHR DR: Brad Chavez Tissues: 1 - CX/ENDOCX FOR PAP SMEARS Procedures: PAP THIN PREP/UVM Screening HPV DNA PROBE Comments: [id number]
[2020-07-04 15:33] LABS: Chlamydia Result Negative (Negative); GC Result Negative (Negative)
== END 2020-07-02 15:59 ==
LOC: LBN 15:39
PROVIDERS: PCP Internal Medicine; Visit Provider Obstetrics & Gynecology Gynecology
DX: R10.2 Pelvic and perineal pain (principal); Z11.3 Encounter for screening for infections with a predominantly sexual mode of transmission; Z12.4 Encounter for screening for malignant neoplasm of cervix; Z11.51 Encounter for screening for human papillomavirus (HPV)
CPT/HCPCS: 87491; 87591; 88142; 87624

== ENCOUNTER 2020-07-16 02:04 | Outpatient (CLI) | payer MEDICAID, SELFPAY ==
--- NOTE | 2020-07-16 06:30 | DI.US_ITS ---
EXAM: US PELVIS TRANSVAGINAL CLINICAL HISTORY: dysmenorrhea,H/O D C, pelvic pain,r10.2,z98.890. TECHNIQUE: Transabdominal and transvaginal pelvic ultrasound was performed using standard protocol. COMPARISON: US US PELVIS TRANSVAGINAL from 07/11/2019 US US PELVIS from 06/23/2020 FINDINGS: KIDNEYS: Kidneys are symmetric in size. No evidence of renal calculi. No evidence of hydronephrosis. No renal mass or cyst identified. UTERUS: Position: Anteverted. Size: 9.1 long by 5.5 AP by 6.3 transverse cm Endometrium: 1.0 cm. Normal for patient's menstrual status. Myometrium: Heterogeneous myometrium with a question of a fundal uterine fibroid. Cervix: Unremarkable. OVARIES: Right: 2.6 x 1.2 x 1.3 cm Cyst or mass: Small functional cysts. Left: 2.4 x 1.8 x 1.4. cm Cyst or mass: Small functional cysts. The largest measures 1.2 x 1.1 x 0.8 cm. DOPPLER: Color: Symmetric and uniform flow to both ovaries. No hyperemia. Duplex: Normal ovarian arterial waveforms visualized. CUL-DE-SAC: Free fluid: None. Other: None. IMPRESSION: 1. Normal sonographic appearance of the kidneys. 2. Heterogeneous myometrium with a question of a small fundal uterine fibroid. Unremarkable endometr ial stripe. 3. Unremarkable bilateral ovaries. DATA REPOSITORY:
== END 2020-07-16 02:24 ==
PROVIDERS: PCP Internal Medicine; Visit Provider Obstetrics & Gynecology Gynecology
DX: R10.2 Pelvic and perineal pain (principal); N94.6 Dysmenorrhea, unspecified
CPT/HCPCS: 76830; 76856

== ENCOUNTER 2020-07-28 09:29 | Outpatient (REF) | payer MEDICAID, SELFPAY ==
--- NOTE | 2020-07-28 09:00 | ENDOMET_PTH ---
PATIENT: Vicky Urbina LOC: [place] U#:[id number] AGE/SX: 39/F ROOM: RE07/28/[address]: Amaris Knott DO : 1980 BED: DIS: 07/28/2020 SPEC #: [id number] RECD: 07/28/20 13:03 STATUS: NAYELI REQ #: [id number] NACHO: 07/28/20 09:[address]: Amaris Knott DEPT: Surgical Specimen RECD BY: Chelle Peralta ENTERED: 07/28/20 13:03 SP TYPE: Endomet OTHR DR: Brad Chavez Tissues: 1 - ENDOMETRIUM BX/RUTH Procedures: GROSS AND MICRO LEVEL 4 Comments: [id number]
== END 2020-07-28 09:49 ==
LOC: LBN 09:29
PROVIDERS: PCP Internal Medicine; Visit Provider Obstetrics & Gynecology
DX: N93.8 Other specified abnormal uterine and vaginal bleeding (principal); N85.01 Benign endometrial hyperplasia
CPT/HCPCS: 88305

== ENCOUNTER 2021-03-20 14:12 | Outpatient (REF) | payer MEDICAID, SELFPAY ==
--- NOTE | 2021-03-20 11:00 | SKI_PTH ---
PATIENT: Vicky Urbina LOC: [place] U#:[id number] AGE/SX: 40/F ROOM: RE03/20/[address]: Vonnie Bashir : 1980 BED: DIS: 03/20/2021 SPEC #: [id number] RECD: 03/23/21 12:27 STATUS: NAYELI REGregg #: [id number] NACHO: 03/20/21 11:[address]: Alison Arellano DEPT: Surgical Specimen RECD BY: Chelle Peralta ENTERED: 03/23/21 12:29 SP TYPE: MELISSA AGRAWAL DR: Brad Chavez Tissues: 1 - SKIN BIOPSY(SHAVE/PUNCH) 2 - SKIN BIOPSY(SHAVE/PUNCH) Procedures: SKIN LEVEL 4 Comments: [id number]
== END 2021-03-20 14:13 | disposition home or self-care (01) ==
LOC: LBN 14:12
PROVIDERS: PCP Internal Medicine; Visit Provider Nurse Practitioner Family
DX: D23.72 Other benign neoplasm of skin of left lower limb, including hip (principal)
CPT/HCPCS: 88305

== ENCOUNTER 2021-08-27 09:43 | Outpatient (CLI) | payer MEDICAID, SELFPAY ==
--- NOTE | 2021-08-27 09:15 | DI.RAD_ITS ---
Exam(s) XR WRIST LT COMP NAVICULAR EXAM: XR WRIST LT COMP NAVICULAR CLINICAL HISTORY: pain in left wrist. TECHNIQUE: 2D digital imaging was performed. Four views including navicular view. COMPARISON: No exams were available for comparison FINDINGS: BONES: No acute fracture is present. No bony destructive lesion is seen. No abnormality of the navicu lar. JOINTS: The carpal bones are normally aligned. SOFT TISSUE: Normal. IMPRESSION: Unremarkable radiographs of the left wrist. DATA REPOSITORY: RADIATION DOSE DELIVERED:
== END 2021-08-27 09:44 | disposition home or self-care (01) ==
LOC: DIORS 09:44
PROVIDERS: PCP Internal Medicine; Referring Provider Internal Medicine; Visit Provider Physician Assistant Surgical
DX: M25.532 Pain in left wrist (principal)
CPT/HCPCS: 73110

== ENCOUNTER 2021-09-08 00:23 | Outpatient (CLI) | payer MEDICAID, SELFPAY ==
--- NOTE | 2021-09-08 06:30 | DI.MRI_ITS ---
Exam(s) MR UPPER JOINT LT WO EXAM: MR UPPER JOINT LT WO CLINICAL HISTORY: PAIN,disorder lt wrist, m24.232. TECHNIQUE: Multiplanar multisequence MRI was performed. COMPARISON: Plain films 27 August 2021 FINDINGS: BONES: There is no fracture or contusion pattern. There are few tiny cystic areas in the lunate. JOINTS: A small amount of fluid is seen at the radial carpal joint and posterior to the capitate.. TENDONS: Flexors: Unremarkable. Extensors: Unremarkable. MUSCLES: Unremarkable. MEDIAN NERVE: Unremarkable on this noncontrast examination. SOFT TISSUES: Unremarkable. LIGAMENTS: Unremarkable. TRIANGULAR FIBROCARTILAGE: Small amount of fluid near triangular fibrocartilage but no visible tear. IMPRESSION: Small amount of fluid at the radial carpal and lunate capitate joints. Small amount of fluid around t he triangular fibrocartilage without definite tear. DATA REPOSITORY:
== END 2021-09-08 00:43 ==
PROVIDERS: PCP Internal Medicine; Visit Provider Student in an Organized Health Care Education/Training Program
DX: M25.532 Pain in left wrist (principal); M24.232 Disorder of ligament, left wrist; M25.432 Effusion, left wrist
CPT/HCPCS: 73221

== ENCOUNTER 2022-04-18 13:35 | Emergency (ER) | payer MEDICAID, SELFPAY ==
[2022-04-18 13:42] VITALS: BP 160/108; PULSE 84; RESP 18; TEMP 36.7; O2SAT 96
--- NOTE | 2022-04-18 13:56 | ED.GENADUL_ITS ---
Discharge Plan Disposition Patient Disposition: HOME Condition: Improving Discharge Details Clinical Impression: Acute otitis media, right Primary Care Provider: Brad Chavez ED Provider: Edwin Day Home Meds and New Rx's Prescriptions: New prednisone 50 mg tablet 50 mg PO DAILY 5 Days Qty: 5 0RF amoxicillin-pot clavulanate 875-125 mg tablet 1 tab PO BID 10 Days Qty: 20 0RF Continued aspirin [Adult Low Dose Aspirin] 81 mg tablet,delayed release (DR/EC) 81 mg PO DAILY Qty: 90 3RF Zyrtec 10 mg Capsule 10 mg PO DAILY PRN montelukast [Singulair] 10 mg tablet 10 mg PO QPM PRN fluticasone propionate [Flonase Allergy Relief] 50 mcg/actuation spray,suspension 2 spray INTRANASAL DAILY PRN Discharge Instructions Instructions: Ear Infection (ED) Additional Instructions: Home to rest today. May use Zyrtec or Claritin during the daytime for decongestion with Benadryl 25 to 50 mg at bedtime as needed. Take prednisone and antibiotic as prescribed. Return to the emergency [facility] for any acute Medical Decision Making White skin 41-year-old female presents from home. She has had a day of right ear pain half following 1 week of increased sinus congestion and postnasal drip. She is afebrile, pleasant and well-appearing. She has evidence of acute otitis media. I believe is predominantly due to congestion and will prescribe her both prednisone and oral antibiotic. She is stable and appropriate for discharge to the outpatient HPI General Mode of arrival: ambulatory . Date/Time Provider Initiated Documentation: 04/18/22 13:53 . Limitations to Documentation: no limitations . Information obtained by: patient . History of Present Illness 41 year old F presents to the emergency department with the chief complaint of Right ear pain, described as moderate, Quality is described as dull, and is localized to the head and right. Patient reports no radiation. Patient started experiencing this hour(s) and it has been constant. No relieving factors improve symptom(s), No exacerbating factors reported . Patient notes denies cough, fever/chills and headaches. Patient did receive the following treatments prior to arrival, none Related Data Home Medications Medication Instructions Recorded Confirmed cetirizine 10 mg capsule (Zyrtec) 10 mg PO DAILY PRN 12/16/18 04/18/22 fluticasone propionate 50 2 spray intranasal DAILY PRN 09/04/19 04/18/22 mcg/actuation nasal spray,suspension (Flonase Allergy Relief) montelukast 10 mg tablet 10 mg PO QPM PRN 09/04/19 04/18/22 (Singulair) aspirin 81 mg tablet,delayed 81 mg PO DAILY #90 tabs 08/12/20 04/18/22 release (Adult Low Dose Aspirin) amoxicillin 875 mg-potassium 1 tab PO BID 10 days #20 tabs 04/18/22 clavulanate 125 mg tablet prednisone 50 mg tablet 50 mg PO DAILY 5 days #5 tabs 04/18/22 Previous Rx's Medication Instructions Recorded aspirin 81 mg tablet,delayed 81 mg PO DAILY #90 tabs 08/12/20 release (Adult Low Dose Aspirin) amoxicillin 875 mg-potassium 1 tab PO BID 10 days #20 tabs 04/18/22 clavulanate 125 mg tablet prednisone 50 mg tablet 50 mg PO DAILY 5 days #5 tabs 04/18/22 Allergies Allergy/AdvReac Type Severity Reaction Status Date / Time dust mites Allergy Uncoded 04/18/22 13:46 mold Allergy Uncoded 04/18/22 13:46 General Stated Complaint: EarProblem ERMIAS: 5 Review of Systems Narrative: allergies and sinus congestion. No cough or fever. 6 systems reviewed and PFSH All Active Problems (Updated 04/18/22 @ 13:59 by Edwin Day MD) Acute otitis media, right (Acute) Disorder of ligament, left wrist (Acute) involving lunate (Acute) Threatened (Acute) LMP 10/16/19. 12/19/19 initial u/s no IUP. 01/01/20 GS with faint yolk sac. hCG: General counseling and advice for procreative management (Acute) Dysmenorrhea (Acute) History of D&C (Acute) 01/07/2020 gestational sac 6 weeks at 11 weeks EGA. 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 Her children are not in her custody Number of Children: 4 Current gender identity: female Do you feel safe at home: Yes Do you feel safe in your relationship?: Yes Additional Social history: 11/21/19 Currently her two oldest children are in custody of their father and the younger two were recently adopted out of the foster care system. Pt states I was hoping for this baby...I have had three abortions by choice. Female Reproductive History Menstrual control method: progestin IUCD History History 8 Para 4 Hx # Term Pregnancies 4 Multiple births Hx # Pregnancies Ectopic pregnancies AB induced 3 Hx Number of Living Children 4 AB spontaneous 1 Past Pregnancies Del. Date GA/Weeks # Preg Succ Route Wgt Sex Labor Lgth Anesth esia Location Prov [facility] 01/07/20 8 No Delivery Date: 01/07/20 Last Updated by: Amaris Sanabria LPN Missed AB; MD Faviola Exam Narrative Exam Narrative: GEN: awake, alert, oriented 3. Pleasant, well groomed, interactive. HEAD: Normocephalic, atraumatic ENT: Mucous membranes moist, oropharynx unremarkable, right tympanic membrane is distended and erythematous with loss of light reflex, left tympanic membrane unremarkable EYES: PERRL, EOMI NECK: Full ROM, no LEWIS, no menigismus CHEST/RESP: Nontender, clear to auscultation bilateral, no wheeze/rhonchi/rales CARDIOVASCULAR: RRR, no murmur, rub shahid. 2+ Rad pulse bilateral EXT: Full ROM, no edema, no rash Neuro: Grossly normal neurologic exam, conversant, interactive. Psych: Speech fluent, thoughts congruent, affect normal Course Vital Signs Vital signs: Vital Signs Temperature 36.7 C 04/18/22 13:42 Pulse 84 04/18/22 13:42 Respiratory Rate 18 04/18/22 13:42 Blood Pressure 160/108 H 04/18/22 13:42 Pulse Oximetry 96 04/18/22 13:42 Temperature 36.7 C 04/18/22 13:42 Temperature Source Temporal Artery Scan 04/18/22 13:42 Pulse 84 04/18/22 13:42 Respiratory Rate 18 04/18/22 13:42 Respiratory Effort Non-Labored 04/18/22 13:45 Blood Pressure 160/108 H 04/18/22 13:42 Blood Pressure Position Sitting 04/18/22 13:42 Pulse Oximetry 96 04/18/22 13:42 Oxygen Delivery Method Room Air 04/18/22 13:42 Oxygen Flow Rate 0 04/18/22 13:42 Pain Level 4 04/18/22 13:46
== END 2022-04-18 14:59 | disposition home or self-care (01) ==
PROVIDERS: Emergency Provider Emergency Medicine; PCP Internal Medicine
DX: H66.91 Otitis media, unspecified, right ear (principal)
CPT/HCPCS: 99283; 99284

== ENCOUNTER 2022-10-10 19:53 | Emergency (ER) | payer MEDICAID, SELFPAY ==
[2022-10-10 19:58] VITALS: BP 158/99; PULSE 89; RESP 18; TEMP 36.8; O2SAT 98
--- NOTE | 2022-10-10 20:17 | W.ED.GENAD ---
Discharge Plan Disposition Patient Disposition: Home Discharge Details Clinical Impression: Abscess, dental, Acute otalgia Primary Care Provider: Brad Chavez ED Provider: Chelle Kim Home Meds and New Rx's Prescriptions: New penicillin V potassium 500 mg tablet 500 mg PO QID Qty: 40 0RF Continued aspirin [Adult Low Dose Aspirin] 81 mg tablet,delayed release (DR/EC) 81 mg PO DAILY Qty: 90 3RF Zyrtec 10 mg Capsule 10 mg PO DAILY PRN montelukast [Singulair] 10 mg tablet 10 mg PO QPM PRN fluticasone propionate [Flonase Allergy Relief] 50 mcg/actuation spray,suspension 2 spray INTRANASAL DAILY PRN Discharge Instructions Instructions: Dental Abscess (ED) Additional Instructions: Take antibiotic as prescribed Follow-up with a dentist, call your insurance and see who will cover this procedure Take ibuprofen and Tylenol for pain control Return earlier should you have fever, chills, facial swelling, or with any new or worsening complaints Referrals: Brad Chavez MD [Primary Care Provider] - Discharge Data Discharge Date/Time-TO BE ENTERED AT DEPARTURE: 10/10/22 20:51 Medical Decision Making 41-year-old female in no acute distress, mildly hypertensive, encouraged to follow-up with her primary care physician presents with report of left ear pain which started several days ago Denies known exacerbating or leading factors, has not taken any [id number] medications for analgesia Denies any upper respiratory symptoms Concern for dental abscess, ENT exam otherwise essentially negative Will place on amoxicillin We will refer for dentist Discharged home in stable condition, no clinical exam findings consistent with Silver's angina Medical Records Medical records reviewed: Yes I reviewed the patient's medical records. Lab Data Lab results reviewed: Yes I reviewed the patient's lab results. HPI General Date/Time Provider Initiated Documentation: 10/10/22 20:04. HPI Narrative: This 41-year-old female presents with report of left ear pain. She states that she has had this pain for the past several days. She states she has poor dentition but does not have a dentist secondary to insurance issues. She denies any difficulty swallowing, fever, chills, drainage from ear, or any additional complaints at this time. Related Data Home Medications Medication Instructions Recorded Confirmed cetirizine 10 mg capsule (Zyrtec) 10 mg PO DAILY PRN 12/16/18 10/10/22 fluticasone propionate 50 2 spray intranasal DAILY PRN 09/04/19 10/10/22 mcg/actuation nasal spray,suspension (Flonase Allergy Relief) montelukast 10 mg tablet 10 mg PO QPM PRN 09/04/19 10/10/22 (Singulair) aspirin 81 mg tablet,delayed 81 mg PO DAILY #90 tabs 08/12/20 10/10/22 release (Adult Low Dose Aspirin) penicillin V potassium 500 mg 500 mg PO QID #40 tabs 10/10/22 tablet Previous Rx's Medication Instructions Recorded aspirin 81 mg tablet,delayed 81 mg PO DAILY #90 tabs 08/12/20 release (Adult Low Dose Aspirin) penicillin V potassium 500 mg 500 mg PO QID #40 tabs 10/10/22 tablet Allergies Allergy/AdvReac Type Severity Reaction Status Date / Time dust mites Allergy Uncoded 10/10/22 20:04 mold Allergy Uncoded 10/10/22 20:04 General Stated Complaint: EarProblem ERMIAS: 4 PFSH All Active Problems (Updated 10/10/22 @ 20:23 by KRISTINA Broderick) Abscess, dental (Acute) Acute otalgia (Acute) Disorder of ligament, left wrist (Acute) involving lunate (Acute) Threatened (Acute) LMP 10/16/19. 12/19/19 initial u/s no IUP. 01/01/20 GS with faint yolk sac. hCG: General counseling and advice for procreative management (Acute) Dysmenorrhea (Acute) History of D&C (Acute) 01/07/2020 gestational sac 6 weeks at 11 weeks EGA. 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 Her children are not in her custody Number of Children: 4 Current gender identity: female Do you feel safe at home: Yes Do you feel safe in your relationship?: Yes Additional Social history: 11/21/19 Currently her two oldest children are in custody of their father and the younger two were recently adopted out of the foster care system. Pt states I was hoping for this baby...I have had three abortions by choice. Female Reproductive History Menstrual control method: progestin IUCD History History 8 Para 4 Hx # Term Pregnancies 4 Multiple births Hx # Pregnancies Ectopic pregnancies AB induced 3 Hx Number of Living Children 4 AB spontaneous 1 Past Pregnancies Del. Date GA/Weeks # Preg Succ Route Wgt Sex Labor Lgth Anesthesia Location Prov [facility] 01/07/20 8 No Delivery Date: 01/07/20 Last Updated by: Amaris Sanabria LPN Missed AB; MD Faviola Exam HENMT Other: Purulent drainage and abscess noted adjacent to 15, no evidence of significant deep space infection, no trismus, no evidence of Armond's angina Left ear, tympanic membrane intact, cone of light intact, no fluid noted behind TM, no erythema, no mastoid tenderness, no maxillary swelling Resp Effort & Inspection: normal respiratory effort Cardio Rate: regular rate Course Vital Signs Vital signs: Vital Signs Temperature 36.8 C 10/10/22 19:58 Pulse 89 10/10/22 19:58 Respiratory Rate 18 10/10/22 19:58 Blood Pressure 158/99 H 10/10/22 19:58 Pulse Oximetry 98 10/10/22 19:58 Temperature 36.8 C 10/10/22 19:58 Temperature Source Skin 10/10/22 19:58 Pulse 89 10/10/22 19:58 Respiratory Rate 18 10/10/22 19:58 Respiratory Effort Normal 10/10/22 20:02 Blood Pressure 158/99 H 10/10/22 19:58 Blood Pressure Position Sitting 10/10/22 19:58 Pulse Oximetry 98 10/10/22 19:58 Oxygen Delivery Method Room Air 10/10/22 19:58 Oxygen Flow Rate 0 10/10/22 19:58 Pain Level 7 10/10/22 19:58
[2022-10-10] MEDS: Penicillin V POTASSIUM 500 MG TAB, 4 TABS/BTL PO (20:30)
== END 2022-10-10 20:51 | disposition home or self-care (01) ==
PROVIDERS: Emergency Provider Physician Assistant; PCP Internal Medicine
DX: K04.7 Periapical abscess without sinus (principal); H92.02 Otalgia, left ear
CPT/HCPCS: 99283

== ENCOUNTER 2023-02-26 12:45 | Emergency (ER) | payer MEDICAID, SELFPAY ==
[2023-02-26 12:58] VITALS: BP 154/105; PULSE 105; RESP 22; TEMP 37.1; O2SAT 98
--- NOTE | 2023-02-26 14:37 | ED.GENADUL_ITS ---
Discharge Plan Disposition Patient Disposition: Home Condition: Stable Discharge Details Clinical Impression: Sinusitis, Acute left otitis media Primary Care Provider: Adriana,Local ED Provider: Yoon Glasgow Home Meds and New Rx's Prescriptions: New doxycycline hyclate 100 mg tablet 100 mg PO BID 10 Days Qty: 20 0RF fluticasone propionate 50 mcg/actuation spray,suspension 2 spray intranasal DAILY PRN (Reason: nasal congestion) 7 Days Qty: 16 0RF Rx Instructions: administer into each nostril diclofenac sodium 1 % gel 2 g topical QID PRN (Reason: joint pain) Qty: 100 0RF Rx Instructions: apply to single elbow, wrist or hand; for hand includes palm/fingers/back of hand No Action Zyrtec 10 mg Capsule 10 mg PO DAILY PRN montelukast [Singulair] 10 mg tablet 10 mg PO QPM PRN fluticasone propionate [Flonase Allergy Relief] 50 mcg/actuation spray,suspension 2 spray INTRANASAL DAILY PRN Discharge Instructions Instructions: Sinusitis (ED), Ear Infection (ED) Additional Instructions: Please take the antibiotic twice daily with yogurt or probiotic as directed. Follow up with primary care provider in 3-5 days. Return to ED sooner if any worsening or concerns. Increase oral fluids. Please take Tylenol or Ibuprofen with food every 4-6 hours as needed for pain and swelling. Stand Alone Forms: Work Release Discharge Data Discharge Date/Time-TO BE ENTERED AT DEPARTURE: 02/26/23 15:24 Medical Decision Making 42-year-old female presents to the ER with a chief complaint of ENT congestion, left ear pain which began 2 days ago. She does have a history of recent antibiotics was on Augmentin 2 weeks ago for cat bite. She denies any sore throat cough or any other associated symptoms. She is out of her Flonase prescription. I will give doxycycline for presumed sinusitis/left otitis media. This text was generated using Ygleation system, please disregard any oddities of phrase or misspellings. HPI General Mode of arrival: ambulatory . Date/Time Provider Initiated Documentation: 02/26/23 14:36 . Limitations to Documentation: no limitations . Information obtained by: patient, RN notes reviewed and old records reviewed . HPI Narrative: 42-year-old female presents to the ER with a chief complaint of ENT congestion, left ear pain which began 2 days ago. She does have a history of recent antibiotics was on Augmentin 2 weeks ago for cat bite. She denies any sore th roat cough or any other associated symptoms. She is out of her Flonase prescription. We will give doxycycline for presumed sinusitis/left otitis media. Related Data Home Medications Medication Instructions Recorded Confirmed cetirizine 10 mg capsule (Zyrtec) 10 mg PO DAILY PRN 12/16/18 02/26/23 fluticasone propionate 50 2 spray intranasal DAILY PRN 09/04/19 02/26/23 mcg/actuation nasal spray,suspension (Flonase Allergy Relief) montelukast 10 mg tablet 10 mg PO QPM PRN 09/04/19 02/26/23 (Singulair) diclofenac sodium 1 % topical gel 2 g topical QID PRN joint pain 02/26/23 #100 grams doxycycline hyclate 100 mg tablet 100 mg PO BID 10 days #20 tabs 02/26/23 fluticasone propionate 50 2 spray intranasal DAILY PRN nasal 02/26/23 mcg/actuation nasal congestion 7 days #16 grams spray,suspension Previous Rx's Medication Instructions Recorded diclofenac sodium 1 % topical gel 2 g topical QID PRN joint pain 02/26/23 #100 grams doxycycline hyclate 100 mg tablet 100 mg PO BID 10 days #20 tabs 02/26/23 fluticasone propionate 50 2 spray intranasal DAILY PRN nasal 02/26/23 mcg/actuation nasal congestion 7 days #16 grams spray,suspension Allergies Allergy/AdvReac Type Severity Reaction Status Date / Time dust mites Allergy Uncoded 10/10/22 20:04 mold Allergy Uncoded 10/10/22 20:04 General Stated Complaint: EarProblem ERMIAS: 4 Review of Systems All systems reviewed & are unremarkable except as noted in HPI and below ENT Ears, Nose, Mouth, and Throat: Reports as per HPI, Reports otalgia and Reports sinus pain (Congestion, runny nose) [facility] All Active Problems (Updated 02/26/23 @ 14:57 by Yoon Glasgow NP) Sinusitis (Acute) Acute left otitis media (Acute) Disorder of ligament, left wrist (Acute) involving lunate (Acute) Threatened (Acute) LMP 10/16/19. 12/19/19 initial u/s no IUP. 01/01/20 GS with faint yolk sac. hCG: General counseling and advice for procreative management (Acute) Dysmenorrhea (Acute) History of D&C (Acute) 01/07/2020 gestational sac 6 weeks at 11 weeks EGA. 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 Her children are not in her custody Housing: house Number of Children: 4 Current gender identity: female Do you feel safe at home: Yes Do you feel safe in your relationship?: Yes Female Reproductive History Menstrual control method: progestin IUCD History History 8 Para 4 Hx # Term Pregnancies 4 Multiple births Hx # Pregnancies Ectopic pregnancies AB induced 3 Hx Number of Living Children 4 AB spontaneous 1 Past Pregnancies Del. Date GA/Weeks # Preg Succ Route Wgt Sex Labor Lgth Anesth esia Location Prov [facility] 01/07/20 8 No Delivery Date: 01/07/20 Last Updated by: Amaris Sanabria LPN Missed AB; MD Faviola Exam Narrative Exam Narrative: Constitutional: Alert and oriented x3. Appears stated age. Normal body habitus. Head: Normocephalic, no trauma. Eyes: Pupils PERRL, Red reflex noted, EOM's intact. Eyelids symmetrical without lesions, discharge, or swelling. ENT: Left TM bulging erythemic external ear normal to inspection, no mastoid TTP, swelling, or erythema, Nasal turbinates slightly boggy, no nasal discharge. Normal dentition, Posterior pharynx WNL, no exudate. Chest: RRR, Normal S1, S2, distal pulses intact. Resp: Lungs clear to auscultation bilaterally, no wheezes, rales, or rhonchi. . Hematologic/Lymphatic: No ecchymosis, no lymphadenopathy. Course Vital Signs Vital signs: Vital Signs Temperature 37.1 C 02/26/23 12:58 Pulse 105 H 02/26/23 12:58 Respiratory Rate 22 02/26/23 12:58 Blood Pressure 154/105 H 02/26/23 12:58 Pulse Oximetry 98 02/26/23 12:58 Temperature 37.1 C 02/26/23 12:58 Temperature Source Temporal Artery Scan 02/26/23 12:58 Pulse 105 H 02/26/23 12:58 Respiratory Rate 22 02/26/23 12:58 Blood Pressure 154/105 H 02/26/23 12:58 Blood Pressure Position Sitting 02/26/23 12:58 Pulse Oximetry 98 02/26/23 12:58 Oxygen Delivery Method Room Air 02/26/23 12:58 Oxygen Flow Rate 0 02/26/23 12:58 Pain Level 7 02/26/23 12:58
--- NOTE | 2023-02-26 15:22 | NUR.NOTE ---
Nursing Note: discharged paperwork mailed
== END 2023-02-26 15:24 | disposition home or self-care (01) ==
PROVIDERS: Emergency Provider Registered Nurse Emergency
DX: J01.90 Acute sinusitis, unspecified (principal); H66.92 Otitis media, unspecified, left ear
CPT/HCPCS: 99282